=== PATIENT | male | born 1960 | race Caucasian/White ===

== ENCOUNTER 2025-09-12 18:42 | Emergency (ER) | payer BC ==
[~2025-09-12] VITALS: Ht 170.2 cm; Wt 91.6 kg
[2025-09-12 19:08] VITALS: BP 138/77; PULSE 90; O2SAT 95
--- NOTE | 2025-09-12 19:44 | RADIOLOGY REPORT ---
CLINICAL HISTORY: FLU SX TECHNIQUE: 2 view of the chest was obtained. WID: COMPARISON: None FINDINGS: Lungs: clear Cardiomediastinal silhouette: normal in size Bones: No acute osseous abnormality. Degenerative changes within the spine. Imaged Upper Abdomen: unremarkable. IMPRESSION: NO ACUTE CARDIOPULMONARY PROCESS.
[2025-09-12 20:04] LABS: INFLUENZA TYPE A ANTIGEN RAPID POSITIVE (Negative); INFLUENZA TYPE B ANTIGEN RAPID NEGATIVE (Negative)
--- NOTE | 2025-09-12 20:10 | Physician Documentation ---
History of Present Illness General Chief Complaint: Flu Symptoms Stated Complaint: FEVER/COUGH Time Seen by MD: 19:55 Primary Medical Doctor: Erik History of Present Illness Initial Comments Otherwise healthy 65-year-old male who presents to the emergency department with a 2-1/2 day history of myalgias, rigors cough and fever. T-max of 102.7. Has been taking PRN Tylenol and ibuprofen. Recent visit to the doctor's office for healthcare maintenance and reassuring exam. No known ill contacts, hospitalizations or travels. Medication Reconciliation Scheduled Oseltamivir Phosphate (Tamiflu), 1 CAP PO Q12H Scheduled PRN Benzonatate* (Benzonatate*), 1-2 CAP PO Q6H PRN for cough Review of Systems All Other Systems at this time: Reviewed and Negative Constitutional: Reports: fever, chills, weakness RESP: Reports: cough Physical Exam Physical Exam Vital Signs: RN Vital Signs have been reviewed: Yes, Temperature: 102.3, Source: Oral, Heart Rate: 90, Respiratory Rate: 18, BP: 138/77, Pulse Oximetry: 95, Weight: 91.600 General Appearance: alert, WD/WN, ill-appearing, moderate distress Head: normal inspection Face: normal inspection Pupils/EOM/Fundus: PERRLA Nose: normal inspection Oropharynx: normal inspection Neck: non-tender, full range of motion; No: meningeal signs Respiratory: lungs clear Chest: no accessory muscle use Cardiovascular: normal peripheral pulses Back: normal inspection Neurologic: oriented x4 Motor / Sensory: no motor deficit Psychiatric: normal mood/affect Skin: normal color Lymphatic: no adenopathy Progress Results/Orders Results/Orders Completed Orders - BRISEYDA ASKEW Ketorolac Trometh 15mg/Ml Vial (Toradol (09/12/25 20:10) Oseltamivir Capsule (Tamiflu Capsule) (09/12/25 20:10) Benzonatate Capsule (Tessalon Perles Cap (09/12/25 20:15) Vital Signs 09/12/25 09/12/25 09/12/25 19:08 20:25 20:30 Temp 102.3 102.3 Pulse 90 Resp 18 16 B/P (MAP) 138/77 Pulse Ox 95 Laboratory Tests Test 09/12/25 19:03 Influenza Type A Antigen Positive Influenza Type B Antigen Negative SARS-CoV-2 Antigen (Rapid) Negative Medical Decision Making Additional information obtaine: family Findings Examination history consistent with a acute viral syndrome. We will provide Toradol for mitigation of myalgias and rigors and fever. COVID and influenza screening pending. Presently no consideration for meningitis or other serious bacterial illness. Chest x-ray imaging reassuring for no infiltrates. Vital signs remain normal and patient remains nontoxic appearing. Influenza a screening positive. First dose Tamiflu provided the patient emergency department aftercare instructions and prescriptions provided. Safely discharged without hypoxia and strict instructions for follow up. Differential Diagnosis See above. Departure Disposition: HOME / SELF CARE / HOMELESS Impression: Primary Impression: Viral syndrome Additional Impression: Influenza Condition: Improved Discharge Instructions: Influenza, Adult Additional Instructions: Please obtain prescriptions and begin as directed. Please stay well hydrated. You have influenza A with a reassuring chest x-ray for no pneumonia at this time. Please follow up with the primary care physician for repeat examination and/or return to the emergency department if worse. Thank you for visiting [facility]. Have a happy holiday season. Referrals: NO PRIMARY CARE PROVIDER (PCP) Prescriptions Benzonatate* (Benzonatate*) 100 Mg Capsule 1-2 CAP PO Q6H PRN for cough, #30 CAP Prov: BRISEYDA ASKEW PAC 09/12/25 Oseltamivir Phosphate (TAMIFLU) 75 Mg Capsule 1 CAP PO Q12H for 5 Days, #10 CAP Prov: BRISEYDA ASKEW PAC 09/12/25 Education Educated: Patient Educated regarding: diagnosis, treatment, prognosis, need for follow up Signature Scribe Signature: . Attestation: . BRISEYDA ASKEW PAC Sep 12, 2025 20:10
[2025-09-12] MEDS ORDERED: BENZ-38 PO (20:14)
[2025-09-12] MEDS ORDERED: TAM75C PO (20:14)
[2025-09-12] MEDS: oseltamivir phos 75mg capsule PO ONE (20:20)
[2025-09-12 20:25] VITALS: RESP 16
[2025-09-12] MEDS: ketorolac trometh 15mg/ml vial 15 MG/ML ML IM ONE (20:25)
[2025-09-12 20:30] VITALS: TEMP 102.3
== END 2025-09-12 20:31 | disposition home or self-care (01) ==
LOC: ER 18:43
DX: B34.9 Viral infection, unspecified (principal); J11.1 Influenza due to unidentified influenza virus with other respiratory manifestations; Z79.899 Other long term (current) drug therapy; Z20.822 Contact with and (suspected) exposure to COVID-19
CPT/HCPCS: 36415; 71046; 87804; 87811; 96372; 99284; J1885